=== PATIENT | male | born 1985 | race Caucasian/White ===

== ENCOUNTER 2022-05-18 14:50 | Emergency (ER) | payer BC ==
[~2022-05-18] VITALS: Ht 177.8 cm; Wt 115.0 kg
[2022-05-18 14:53] VITALS: BP 144/100
[2022-05-18 16:04] LABS: CLARITY,URINE CLEAR (Clear); COLOR,URINE YELLOW (Yellow); GLUCOSE, URINE NEGATIVE (Neg); KETONES,URINE NEGATIVE (Neg); LEUKOCYTE ESTERASE ,URINE NEGATIVE (Neg); NITRITES, URINE NEGATIVE (Neg); OCCULT BLOOD,URINE NEGATIVE (Neg); PROTEIN,URINE NEGATIVE (Neg); UROBILINOGEN,URINE 0.2 E.U/dL (0.2-1.0)
[2022-05-18 16:07] LABS: UA COLLECTION TYPE VOIDED
[2022-05-18 16:18] LABS: URINE AMPHETAMINE SCREEN NEGATIVE (Neg); URINE BARBITUATE SCREEN NEGATIVE (Neg); URINE BENZODIAZEPINES SCREEN NEGATIVE (Neg); URINE CANNABINOID SCREEN POSITIVE (Neg); URINE COCAINE SCREEN NEGATIVE (Neg); URINE METHADONE SCREEN NEGATIVE (Neg); URINE OPIATE SCREEN NEGATIVE (Neg); URINE PHENCYCLIDINE SCREEN NEGATIVE (Neg)
--- NOTE | 2022-05-18 16:45 | NUR ---
RN called patient and into room T2 to get a COVID swab. Patient and asked about what would happen "If" patient stayed. RN explained to patient and the processand the Placement process. Patient stated he didn't know if [facility] would keep him. RN encouraged patient to stay if he was feeling suicidal. Patient denies feeling suicidal at this time. Patient and were going to the lobby to discuss what the patient wanted to do. [facility] A little while later RN noted patient and walking to the parking lot.
== END 2022-05-19 00:57 | disposition left against medical advice (07) ==
LOC: ER 14:51
DX: R45.851 Suicidal ideations (principal); Z53.21 Procedure and treatment not carried out due to patient leaving prior to being seen by health care provider
CPT/HCPCS: 80305; 81003